=== PATIENT | female | born 1970 | race Caucasian/White ===

== ENCOUNTER 2019-11-15 05:50 | Day surgery (SDC) | payer OTHER ==
[~2019-11-15] VITALS: Ht 172.7 cm; Wt 81.2 kg
== END 2019-11-15 14:30 | disposition home or self-care (01) ==
LOC: DS 05:50
PROC: 0UT94ZZ Resection of Uterus, Percutaneous Endoscopic Approach (ICD-10-PCS; principal; 2019-11-15)
PROC: 0UT74ZZ Resection of Bilateral Fallopian Tubes, Percutaneous Endoscopic Approach (ICD-10-PCS; 2019-11-15)
DX: N73.6 Female pelvic peritoneal adhesions (postinfective) (principal); N92.4 Excessive bleeding in the premenopausal period; J45.20 Mild intermittent asthma, uncomplicated; N92.6 Irregular menstruation, unspecified; K50.00 Crohn's disease of small intestine without complications; Z79.899 Other long term (current) drug therapy
CPT/HCPCS: 00840; J0330; J0461; J0694; J1100; J1644; J1885; J2250; J2270; J2405; J2550; J2704; J2765; J3010; J7060; J7121